=== PATIENT | male | born 1975 | race Caucasian/White ===

== ENCOUNTER 2023-06-04 08:29 | Emergency (ER) | payer BC, SELFPAY ==
[2023-06-04 08:56] VITALS: BP 164/92; PULSE 85; RESP 18; TEMP 36.9; O2SAT 94; BMI 32.6
--- NOTE | 2023-06-04 09:03 | XR_ITS ---
WS: [id number] Exam: XR chest 1V portable [id number] Date/Time of Exam: 06/04/2023 9:06 AM Reason For Exam: cough, wheezing No priors. Findings: The lungs are clear and fully expanded. Costophrenic angles are sharp. No infiltrates. Bronchovascula r relief appears normal. Cardiac silhouette is unremarkable. Bony elements are intact. IMPRESSION: Unremarkable chest radiograph.
--- NOTE | 2023-06-04 09:03 | W.ED.URI ---
HPI - URI/Sore Throat General: Chief Complaint: Upper Respiratory Infection Stated Complaint: Cough, N/V, fever Time Seen by Provider: 06/04/23 08:50 Source: patient and family Mode of arrival: ambulatory Limitations: no limitations History of Present Illness: Patient is a nice 48-year-old male presents to ED today with a complaint of cough and congestion. He states approximately 3 to 4 days ago he began having chills, body aches, and subjective fevers. He states the following days it all went down into my lungs and since then has been having significant amounts of coughing so much so that he feels like he has bruised his ribs . Significant other states she also has been ill with similar like symptoms and states her cough is lasted 2 to 3 weeks. Patient states he has a history of chronic bronchitis. He is an everyday smoker. He has been using an albuterol inhaler. Patient arrives with stable vital signs. He is satting 94% on room air. MD elicited complaint: cough, nasal congestion and other (chest wall pain, wheezing) Pertinent past history: COPD Onset (ago): day(s) Consistency: constant Severity: moderate Description of mucous: clear Able to tolerate fluids by mouth: Yes Exacerbating factors: other (coughing) Relieving factors: nothing Context: sick contacts (significant other) Associated symptoms: Reports no associated symptoms, chills, chest pain (chest wall/rib pain), fever(s) (low grade/subjective) and nasal congestion; Deny abdominal pain, diarrhea, ear or mastoid pain, headache(s), nausea, sinus pain or vomiting Review of Systems Const: Reports: fever(s) (low grade/subjective), chills and body aches Eyes: Denies: change in vision, blurry vision, photophobia, eye discomfort or eye discharge ENMT: Reports: nasal discharge and nasal congestion; Denies: throat pain, odynophagia, ear or mastoid pain or sinus pain Card: Reports: chest pain (chest wall/rib pain); Denies: palpitations, irregular heart rhythm, edema, swelling of feet/ankles, lightheadedness, syncope or pre-syncope Resp: Reports: dyspnea, non-productive cough, wheezing, pain on inspiration and chest congestion; Denies: stridor, change in phlegm color or hemoptysis GI: Denies: abdominal pain, nausea, vomiting or diarrhea Musc: Denies: extremity pain or extremity swelling Neuro: Denies: headache(s) or dizziness Physical Exam Const: COMMON NORMALS: no acute distress, average body habitus, patient oriented x3, no limitations, alert and well nourished HENMT: COMMON NORMALS: normocephalic, atraumatic, hearing grossly normal bilaterally, external ears normal, EAC's normal, TM's normal bilaterally, Normal external nose present and oropharynx normal HEAD & SCALP: normal to inspection, normocephalic and atraumatic FACE & SINUS: normal facial exam NOSE: Normal external nose present EXTERNAL EAR: Yes external ears normal EXTERNAL AUDITORY CANAL: EAC's normal TYMPANIC MEMBRANE: TM's normal bilaterally MOUTH: Normal oral and palatal mucosa present and lip normal THROAT: posterior oropharynx normal and tonsils normal Eye: GENERAL EYE: appearance normal, both eyes and all related structures Neck/C-Spine: COMMON NORMALS: no lymphadenopathy Chest: COMMONS NORMALS: normal inspection of the chest and normal palpation of entire chest wall Resp: COMMON NORMALS: normal respiratory effort AUSCULTATION: wheezes throughout Cardio: COMMON NORMALS: regular rate and regular rhythm RATE: regular rate RHYTHM: regular rhythm Extremity: COMMON NORMALS: no clubbing, cyanosis or edema, no calf tenderness and no pedal edema Neuro: COMMON NORMALS: patient oriented x3 SENSORIUM/ORIENTATION: Yes alert Course Vital Signs: Vital signs: Vital Signs Temperature 98.4 F 06/04/23 08:56 Pulse Rate 75 06/04/23 09:26 Respiratory Rate 18 06/04/23 09:20 Blood Pressure 164/92 06/04/23 08:56 Pulse Oximetry 94 06/04/23 09:20 Oxygen Delivery Me thod Room Air 06/04/23 09:20 MDM - URI/Sore Throat Medical Decision Making Patient reports improvement with DuoNeb respiratory treatment and IM Solu-Medrol. His CXR is normal. Vital signs are stable. Respiratory panel collected and pending. He states he does have a nebulizer machine at home and is requesting albuterol vials. This will be provided. Will also place him on steroids especially given his history of COPD. Will contact him later today if respiratory panel comes back positive. Differential Diagnosis Likely upper respiratory infection, croup, viral infection, bronchitis and influenza Medical Records I reviewed the patient's medical records. All radiology interpretation(s) finalized by discharge Discharge Plan Discharge Patient Disposition: Home Clinical Impression: Viral upper respiratory tract infection with cough Condition: Stable Prescriptions: New prednisone 10 mg tablet 60 mg PO DAILY 5 Days Qty: 30 0RF albuterol sulfate 2.5 mg /3 mL (0.083 %) solution for nebulization 2.5 mg inhalation Q6H PRN (Reason: shortness of breath or wheezing) Qty: 75 0RF No Action lorazepam 0.5 mg tablet 0.5 mg PO BID PRN (Reason: anxiety) 30 Days Qty: 45 0RF paroxetine HCl [Paxil] 10 mg tablet 10 mg PO DAILY Qty: 90 2RF amoxicillin-pot clavulanate 875-125 mg tablet 1 tab PO BID 7 Days Qty: 14 1RF nitroglycerin 0.4 mg tablet, sublingual 0.4 mg sublingual PRN PRN (Reason: Chest Pain) losartan 25 mg tablet 25 mg PO DAILY rosuvastatin 40 mg tablet 40 mg PO DAILY Brilinta 90 mg tablet 90 mg PO BID Qty: 180 1RF Aspir-81 81 mg Tablet,Delayed Release (Dr/Ec) 81 mg PO QAM Prilosec 20 mg Capsule,Delayed Release(Dr/Ec) 20 mg PO BID hydroxyzine HCl 25 mg tablet 25 mg PO BEDTIME PRN (Reason: insomnia) Discharge Orders: Discharge ED (Routine); Ordered 06/04/23 Ordered By: Narcisa Easton Referrals: Derian Chu, [facility] [Primary Care Provider] - Patient Instructions: Upper Respiratory Infection (DC) Activity Restrictions/Additional Instructions: As we discussed we will place you on albuterol nebulizer vials as you stated you do have a machine and tubing at home you can use. We will place you on steroids over the next 5 days. Your chest x-ray here was normal. As we discussed we will contact you later today if your respiratory panel comes back positive for anything. Coding Level of Care Code ED Running Instructor for Miroslava Balderrama
[2023-06-04] MEDS: methylPREDNISolone sod succ 125 mg/2 mL INJ IM (09:16)
[2023-06-04] MEDS: ipratropium-albuterol 3 mL Neb INHALATION (09:19)
[2023-06-04 09:20] VITALS: PULSE 77; RESP 18; O2SAT 94
[2023-06-04 09:26] VITALS: PULSE 75
[2023-06-04 10:08] VITALS: BP 164/98; PULSE 78; RESP 18; O2SAT 93
[2023-06-04 11:08] LABS: Adenovirus Not Detected (NOT DETECT); Chlamydia Pneumoniae Not Detected (NOT DETECT); Coronavirus 229E,HKU1,NL63,OC4 Not Detected (NOT DETECT); Human Metapneumovirus Not Detected (NOT DETECT); Human Rhinovirus/Enterovirus Not Detected (NOT DETECT); Influenza A Not Detected (NOT DETECT); Influenza A H1 Not Detected (NOT DETECT); Influenza A H1-2009 Not Detected (NOT DETECT); Influenza A H3 Not Detected (NOT DETECT); Influenza B Not Detected (NOT DETECT); Mycoplasma Pneumoniae Not Detected (NOT DETECT); Parainfluenza Virus Type 1 Not Detected (NOT DETECT); Parainfluenza Virus Type 2 Not Detected (NOT DETECT); Parainfluenza Virus Type 3 Not Detected (NOT DETECT); Parainfluenza Virus Type 4 Not Detected (NOT DETECT); Respiratory Syncytial Virus A Not Detected (NOT DETECT); Respiratory Syncytial Virus B Not Detected (NOT DETECT); SARS-COV-2 Not Detected (NOT DETECT)
== END 2023-06-04 10:10 | disposition home or self-care (01) ==
PROVIDERS: Emergency Provider Physician Assistant; PCP Nurse Practitioner Family
DX: J06.9 Acute upper respiratory infection, unspecified (principal); R05.9 Cough, unspecified; Z79.82 Long term (current) use of aspirin; J44.9 Chronic obstructive pulmonary disease, unspecified
CPT/HCPCS: 71045; 87486; 87581; 87633; 94640; 96372; 99284; J2930

== ENCOUNTER → 2023-06-05 08:58 | Outpatient (BNVA) | payer BC, SELFPAY | PROVIDERS: PCP Nurse Practitioner; Visit Provider Nurse Practitioner Family | DX: S46.911A Strain of unspecified muscle, fascia and tendon at shoulder and upper arm level, right arm, initial encounter (principal); X58.XXXA Exposure to other specified factors, initial encounter; M19.011 Primary osteoarthritis, right shoulder | CPT/HCPCS: 73030 ==

== ENCOUNTER 2023-06-12 06:00 | Outpatient (RCR) | payer BC, SELFPAY | END 2023-07-08 23:59 | disposition home or self-care (01) | LOC: SPT 06:00 | PROVIDERS: Visit Provider Nurse Practitioner Family | DX: S46.911D Strain of unspecified muscle, fascia and tendon at shoulder and upper arm level, right arm, subsequent encounter (principal); X58.XXXD Exposure to other specified factors, subsequent encounter; M25.119 Fistula, unspecified shoulder | CPT/HCPCS: 97110; 97161 ==

== ENCOUNTER 2023-07-09 06:00 | Outpatient (RCR) | payer BC, SELFPAY | END 2023-08-07 23:59 | disposition home or self-care (01) | LOC: SPT 06:00 | PROVIDERS: PCP Nurse Practitioner Family; Visit Provider Nurse Practitioner Family | DX: M25.511 Pain in right shoulder (principal) | CPT/HCPCS: 97110; 97112; 97530 ==

== ENCOUNTER 2023-08-08 06:00 | Outpatient (RCR) | payer BC, SELFPAY | END 2023-09-07 23:59 | disposition home or self-care (01) | LOC: SPT 06:00 | PROVIDERS: PCP Nurse Practitioner Family; Visit Provider Nurse Practitioner Family | DX: S46.911D Strain of unspecified muscle, fascia and tendon at shoulder and upper arm level, right arm, subsequent encounter (principal); X58.XXXD Exposure to other specified factors, subsequent encounter | CPT/HCPCS: 97110; 97112; 97530 ==

== ENCOUNTER → 2024-04-16 08:45 | Outpatient (BNVA) | payer OTHER, SELFPAY | PROVIDERS: PCP Nurse Practitioner Family; Visit Provider Nurse Practitioner Family | DX: I25.10 Atherosclerotic heart disease of native coronary artery without angina pectoris (principal); E78.5 Hyperlipidemia, unspecified; L03.116 Cellulitis of left lower limb; S81.002A Unspecified open wound, left knee, initial encounter; X58.XXXA Exposure to other specified factors, initial encounter | CPT/HCPCS: 73562; 80053; 80061; 81003; 83036; 84443; 85025; 85651; 86140 ==

== ENCOUNTER → 2024-12-16 13:36 | Outpatient (BNVA) | payer OTHER, SELFPAY | PROVIDERS: PCP Nurse Practitioner Family; Visit Provider Nurse Practitioner Family | DX: J06.9 Acute upper respiratory infection, unspecified (principal); F41.1 Generalized anxiety disorder; R05.9 Cough, unspecified | CPT/HCPCS: 87426 ==

== ENCOUNTER → 2025-03-09 09:12 | Outpatient (BNVA) | payer OTHER, SELFPAY | PROVIDERS: PCP Nurse Practitioner Family; Visit Provider Nurse Practitioner Family | DX: I10 Essential (primary) hypertension (principal); E78.5 Hyperlipidemia, unspecified | CPT/HCPCS: 80053; 80061; 81003; 82306; 83036; 84443; 85025 ==